=== PATIENT | male | born 1935 | race Caucasian/White ===

== ENCOUNTER 2017-03-20 17:16 | Inpatient (IN) | payer MEDICARE, OTHER ==
--- NOTE | ~2017-03-20 | DS ---
Discharge Summary [address] [address] NAME: ELIF ALMARAZ : 34 STATUS : DIS IN PAT#: [id number] AGE: 81 ADM/REG DATE : 03/20/17 MR#: [id number] REPORT SERV DATE: 03/24/17 DICTATED BY: THOMAS HERRING DATE: 03/23/17 REPORT STATUS : Draft TRANSCRIBED BY: MODL DATE: 03/23/17 ADMISSION DATE: 03/20/2017 DISCHARGE DATE: 03/23/2017 ADDENDUM: Discharge time greater than 30 minutes. DICTATED BY: Thomas Herring M.D. DD/JUNE Thomas Herring M.D. / [id number] CC: Lizandro Mullins M.D.
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
--- NOTE | ~2017-03-20 | DS ---
Discharge Summary [address] [place]. [address] NAME: ELIF ALMARAZ : 34 STATUS : DIS IN PAT#: [id number] AGE: 81 ADM/REG DATE : 03/20/17 MR#: [id number] REPORT SERV DATE: 03/24/17 DICTATED BY: THOMAS HERRING DATE: 03/23/17 REPORT STATUS : Draft TRANSCRIBED BY: MODL DATE: 03/23/17 ADMISSION DATE: 03/20/2017 DISCHARGE DATE: 03/23/2017 DISCHARGE DIAGNOSES: 1. Left pyelonephritis. 2. Left hydronephrosis. 3. Obstructing left renal stone, probably intermittent. 4. Bilateral renal stones and cysts. 5. Acute kidney injury, improving at discharge. 6. Benign prostatic hypertrophy with voiding dysfunction. 7. History of remote uric acid stones and stents. 8. Acute constipation associated with present illness. 9. Diverticulosis. 10.Hypertension. 11.B12 deficiency. 12.Multiple surgeries as described on admission history and physical examination. OPERATIONS AND PROCEDURES: Cystourethroscopy, left retrograde pyelogram, and left ureteral stent placement, Dr. Hutchins, 03/21/2017. PRESENT ILLNESS: This is an 81-year-old white male taken in transfer from [facility] Emergency Room with suspected pyelonephritis and acute kidney injury as outlined on admission history and physical examination dictated by the undersigned. ADDITIONAL HISTORY: Per history and physical examination. PHYSICAL EXAMINATION: Per admission history and physical examination. ADMISSION LABORATORY: Per admission history and physical examination. HOSPITAL COURSE: He was admitted to [address] [place] [address] with assessment: 1. Left pyelonephritis. 2. Left hydronephrosis. 3. Left renal stones and cysts. 4. Right renal cysts. 5. Acute kidney injury. 6. BPH with voiding dysfunction. 7. History of remote uric acid stones and stents. 8. Acute constipation. 9. Diverticulosis. 10.Hypertension. 11.B12 deficiency. 12.Surgeries as noted in history and physical examination. Discharge Summary [address] [place]. [address] NAME: ELIF ALMARAZ : 34 STATUS : DIS IN PAT#: [id number] AGE: 81 ADM/REG DATE : 03/20/17 MR#: [id number] REPORT SERV DATE: 03/24/17 DICTATED BY: THOMAS HERRING DATE: 03/23/17 REPORT STATUS : Draft TRANSCRIBED BY: JUNE DATE: 03/23/17 IV fluids and Rocephin were given at [facility]. Cultures were repeated here. He was started on Rocephin plus single-dose tobramycin. Crystalloid volume resuscitation was given. I spoke with Urology, Dr. Hutchins. On 03/21/2017, he was taken to the OR by Dr. Hutchins, where the above-mentioned procedure was performed. Significant findings included a trabeculated bladder, enlarged prostate, stone debris in the bladder, dilated left ureter and renal pelvis, and no purulent urine. He tolerated the procedure well. Postprocedure, his diet was advanced, which he tolerated well. Antimicrobials and IV hydration was continued. Cultures done here including blood x2 and urine x1 were no growth. With the above-mentioned therapy, his creatinine fell from 3.19 on admission to 2.42 at discharge, BUN 35 to 31. His white blood count was 9.9 here and 7.2 at discharge. A Fajardo catheter had been placed with difficulty per the patient and 's account when he was in the [facility] ER. With Fajardo discontinuation, he had some irritative voiding symptoms. These improved considerably with the use of flavoxate. On 03/23/2017, he was seen by his urologist, Dr. Sweeney. Dr. Sweeney suggested ureteroscopy stone ISWL on Thursday of this week. With his clinical improvement, it was felt he could be safely discharged home to have that procedure performed. DIET: He will continue his home diet. ACTIVITY: As tolerated. DISCHARGE MEDICATIONS: Pending followup on Thursday, he will continue the following medications, B12 at 1000 mcg IM every 28 days, B12 at 1000 mcg daily, Flomax 0.4 mg after supper, sodium bicarbonate 650 mg daily, Tylenol as needed for pain, Percocet 5/325 one to two every four hours as needed for pain not relieved by Tylenol, flavoxate 200 mg three times daily, Ceftin 500 mg twice daily for 10 days until followup noting he received 2 g of Rocephin daily here on 03/20/2017, 03/21/2017, and 03/22/2017 and prior to discharge, 03/23/2017. He plans to follow up with his primary care physician, Dr. Heck, in April or sooner if there are problems. DICTATED BY: Thomas Herring M.D. DD/JUNE Discharge Summary [address] [place] [address] NAME: ELIF ALMARAZ : 34 STATUS : DIS IN PAT#: [id number] AGE: 81 ADM/REG DATE : 03/20/17 MR#: [id number] REPORT SERV DATE: 03/24/17 DICTATED BY: THOMAS HERRING DATE: 03/23/17 REPORT STATUS : Draft TRANSCRIBED BY: JUNE DATE: 03/23/17 Thomas Herring M.D. / [id number] CC: Lizandro Mullins M.D. William Young Jr., M.D.
--- NOTE | ~2017-03-20 | OP ---
Record Of Operation [facility] [address] [place]. [address] NAME: ELIF BEACH : 34 STATUS : ADM IN [facility]#: [id number] AGE: 81 ADM/REG DATE : 03/20/17 MR#: [id number] REPORT SERV DATE: 03/21/17 DICTATED BY: TANNER HUTCHINS DATE: 03/21/17 REPORT STATUS : Draft TRANSCRIBED BY: MODL DATE: 03/21/17 DATE OF PROCEDURE: 03/21/2017 TITLE OF OPERATION: Cystourethroscopy, left retrograde pyelogram, and left ureteral stent placement. PREOPERATIVE DIAGNOSES: 1. Left renal stone. 2. Hydronephrosis. 3. Urinary tract infection. 4. Acute kidney injury. POSTOPERATIVE DIAGNOSES: 1. Left renal stone. 2. Hydronephrosis. 3. Urinary tract infection. 4. Acute kidney injury. INDICATIONS: Mr. Beach is an 81-year-old male, who is a patient of my partner, Dr. Sweeney. He has a history of renal stones and obstructive pyelonephritis. He presents today with left flank pain, fevers, and acute renal insufficiency. He is here for a stent placement. ANESTHESIA: General. COMPLICATIONS: None. IMPLANT: 6 x 26 left ureteral stent and 18-Malian coude catheter. SPECIMENS: None. NARRATIVE: The patient was brought to the operating room and identified by his wristband. General anesthesia was induced and Rocephin had already been given for preoperative antibiotics. He was placed in dorsal lithotomy position, and prepped and draped in sterile fashion. A 22-Malian cystoscope was placed into his urethra and into his bladder. The bladder was inspected. It was very trabeculated. The prostate was enlarged. There was some stone debris in his bladder. The left ureteral orifice was identified and cannulated with a Sensor wire. A 5-Malian open-ended catheter was placed over the wire into the distal ureter. Retrograde pyelogram was shot, which showed dilated left ureter and renal pelvis. A wire was placed up to the level of the renal pelvis. There was a filling defect consistent with a stone. A 6 x 26 ureteral stent was placed in standard fashion. The proximal coil was in the renal pelvis under fluoroscopic guidance. Distal coil was in the bladder under direct vision. Purulent urine was not drained from the kidney. The kidney efflux seemed fairly clear. The scope was removed. An 18-Malian coude catheter was placed. The balloon was inflated with 10 mL of sterile water. The patient was awoken from anesthesia and transferred to the recovery room in stable condition. I will have Dr. Sweeney see him if he is still here on Thursday to discuss treatment of this stone. Otherwise, we Record Of [address] [address] NAME: ELIF BEACH : 34 STATUS : ADM IN PAT#: [id number] AGE: 81 ADM/REG DATE : 03/20/17 MR#: [id number] REPORT SERV DATE: 03/21/17 DICTATED BY: TANNER HUTCHINS DATE: 03/21/17 REPORT STATUS : Draft TRANSCRIBED BY: JUNE DATE: 03/21/17 will have him follow up in clinic to arrange for stone management. His Fajardo catheter can be discharged tomorrow assuming that is okay with the hospitalist team and his creatinine is downtrending. AKI/JUNE Tanner Hutchins MD / [id number] CC: MD Brodie Osuna M.D.
[2017-03-20] MEDS ORDERED: CYANO1000T PO (18:36)
[2017-03-20] MEDS ORDERED: B121000P IM (18:36)
[2017-03-20] MEDS ORDERED: FLOMAX4 PO (18:37)
[2017-03-20] MEDS ORDERED: SODBICAR10 PO (18:38)
[2017-03-20] MEDS ORDERED: ACET500CAP PO (18:39)
[2017-03-21 02:15] LABS: ASCORBIC ACID (UR NOT ORDER) NEG (NEG); BILIRUBIN, URINE NEGATIVE (NEG); KETONE, URINE TRACE MG/DL (NEG); LEUKOCYTE ESTERASE(NOT OR SMALL (NEG); WBC (NOT ORDERED) (RFLEX) 5 (0-5)
[2017-03-21 04:33] LABS: BASOPHILS 0.3 %; BASOPHILS ABSOLUTE 0.03 10/3/uL (0.0-0.16); EOSINOPHILS 1.2 %; EOSINOPHILS ABSOLUTE 0.12 10/3/uL (0.0-0.53); HEMATOCRIT 37.7 % (40.0-51.0); HEMOGLOBIN 12.6 g/dL (13.6-17.8); IMMATURE GRANULOCYTES 0.2 %; IMMATURE GRANULOCYTES ABSOLUTE 0.02 10/3/uL (0.0-0.11); LYMPHOCYTES 19.9 %; LYMPHOCYTES ABSOLUTE 1.98 10/3/uL (0.67-4.30); MEAN CORPUS HGB CONC 33.4 g/dL (32.0-36.0); MEAN CORPUSCULAR HEMOGLOB 28.5 pg (26.0-34.0); MEAN CORPUSCULAR VOLUME 85.3 fL (80-100); MEAN PLATELET VOLUME 9.4 fL (9.2-13.0); MONOCYTES 11.5 %; MONOCYTES ABSOLUTE 1.14 10/3/uL (0.21-1.20); NEUTROPHILS 66.9 %; NEUTROPHILS ABSOLUTE 6.65 10/3/uL (2.02-8.40); PLATELET COUNT 222 10/3/uL (150-400); RBC DISTRIBUTION WIDTH 14.4 % (12.0-16.0); RED CELL COUNT 4.42 10/6/uL (4.7-6.1); WHITE BLOOD CELLS 9.9 10/3/uL (4.5-10.5)
[2017-03-21 04:36] LABS: MANUAL DIFF NO %
[2017-03-21 04:51] LABS: A/G RATIO 0.7 (0.7-1.9); ALBUMIN 2.5 G/DL (3.5-5.0); ALKALINE PHOSPHATASE 56 U/L (45-117); BUN (BLOOD UREA NITROGEN) 35 MG/DL (6-23); CALCIUM, SERUM 8.7 MG/DL (8.5-10.4); CHLORIDE, SERUM 111 MMOL/L (96-112); CO2 (CARBON DIOXIDE) 26 MMOL/L (24-34); CREATININE 3.19 MG/DL (0.70-1.30); GFR AFRICAN AMERICAN 20 ML/MIN (>=60); GFR NON AFRICAN AMERICAN 17 ML/MIN (>=60); GLOBULIN 3.6 G/DL (2.5-4.1); GLUCOSE, SERUM 92 MG/DL (60-99); POTASSIUM, SERUM 4.4 MMOL/L (3.5-5.3); SGOT(AST) 5 U/L (5-40); SGPT(ALT) 7 U/L (5-65); SODIUM, SERUM 141 MMOL/L (135-148); TOTAL BILIRUBIN 0.6 MG/DL (0-1.2); TOTAL PROTEIN 6.1 G/DL (6.0-8.5)
[2017-03-21 05:58] LABS: PROCALCITONIN 0.19 ng/mL (<0.5)
[2017-03-22 07:05] LABS: BUN (BLOOD UREA NITROGEN) 33 MG/DL (6-23); CHLORIDE, SERUM 113 MMOL/L (96-112); CO2 (CARBON DIOXIDE) 23 MMOL/L (24-34); CREATININE 2.73 MG/DL (0.70-1.30); GFR AFRICAN AMERICAN 24 ML/MIN (>=60); GFR NON AFRICAN AMERICAN 21 ML/MIN (>=60); GLUCOSE, SERUM 120 MG/DL (60-99); POTASSIUM, SERUM 4.5 MMOL/L (3.5-5.3); SODIUM, SERUM 143 MMOL/L (135-148)
[2017-03-22 07:09] LABS: HEMOGLOBIN 11.4 g/dL (13.6-17.8); MEAN CORPUS HGB CONC 32.6 g/dL (32.0-36.0); MEAN PLATELET VOLUME 9.5 fL (9.2-13.0); PLATELET COUNT 217 10/3/uL (150-400); RBC DISTRIBUTION WIDTH 14.6 % (12.0-16.0); RED CELL COUNT 4.07 10/6/uL (4.7-6.1)
[2017-03-22 07:10] LABS: MANUAL DIFF YES %
[2017-03-22 07:34] LABS: BAND NEUTROPHILS 1 %; EOSINOPHILS 2 %; EOSINOPHILS ABSOLUTE (CALC) 0.14 10/3/uL (0.0-0.53); LYMPHOCYTES 26 %; LYMPHOCYTES ABSOLUTE (CALC) 1.82 10/3/uL (0.67-4.30); MONOCYTES 4 %; MONOCYTES ABSOLUTE (CALC) 0.28 10/3/uL (0.21-1.20); NEUTROPHILS ABSOLUTE (CALC) 4.76 10/3/uL (2.02-8.40); PLATELET ESTIMATE ADQ (ADEQUATE); SEGMENTED NEUTROPHIL (0) 67 %; TOTAL NUCLEATED CELLS 100
[2017-03-22 07:35] LABS: RBC MORPHOLOGY NORM (NORMAL)
[2017-03-23 05:39] LABS: BASOPHILS 0.3 %; BASOPHILS ABSOLUTE 0.02 10/3/uL (0.0-0.16); EOSINOPHILS 2.6 %; EOSINOPHILS ABSOLUTE 0.19 10/3/uL (0.0-0.53); HEMOGLOBIN 12.4 g/dL (13.6-17.8); IMMATURE GRANULOCYTES 0.3 %; IMMATURE GRANULOCYTES ABSOLUTE 0.02 10/3/uL (0.0-0.11); LYMPHOCYTES ABSOLUTE 1.88 10/3/uL (0.67-4.30); MEAN CORPUS HGB CONC 32.1 g/dL (32.0-36.0); MEAN CORPUSCULAR HEMOGLOB 27.9 pg (26.0-34.0); MEAN CORPUSCULAR VOLUME 86.7 fL (80-100); MEAN PLATELET VOLUME 9.5 fL (9.2-13.0); MONOCYTES 11.2 %; MONOCYTES ABSOLUTE 0.81 10/3/uL (0.21-1.20); NEUTROPHILS 59.6 %; NEUTROPHILS ABSOLUTE 4.31 10/3/uL (2.02-8.40); PLATELET COUNT 266 10/3/uL (150-400); RBC DISTRIBUTION WIDTH 14.2 % (12.0-16.0); RED CELL COUNT 4.45 10/6/uL (4.7-6.1); WHITE BLOOD CELLS 7.2 10/3/uL (4.5-10.5)
[2017-03-23 05:40] LABS: HEMATOCRIT 38.6 % (40.0-51.0); MANUAL DIFF NO %
[2017-03-23 05:51] LABS: BUN (BLOOD UREA NITROGEN) 31 MG/DL (6-23); CHLORIDE, SERUM 113 MMOL/L (96-112); CO2 (CARBON DIOXIDE) 24 MMOL/L (24-34); CREATININE 2.42 MG/DL (0.70-1.30); GFR AFRICAN AMERICAN 28 ML/MIN (>=60); GFR NON AFRICAN AMERICAN 24 ML/MIN (>=60); GLUCOSE, SERUM 102 MG/DL (60-99); POTASSIUM, SERUM 4.1 MMOL/L (3.5-5.3); SODIUM, SERUM 141 MMOL/L (135-148)
[2017-03-23 05:53] LABS: CALCIUM, SERUM 9.2 MG/DL (8.5-10.4)
[2017-03-23] MEDS ORDERED: PCET PO (15:28)
[2017-03-23] MEDS ORDERED: FLAVOXATE100 MG PO (15:29)
[2017-03-23] MEDS ORDERED: CEFT5 PO (15:30)
[2017-04-06] MEDS ORDERED: UROCIT-K 15 PO (16:20)
== END 2017-03-23 16:28 | disposition home or self-care (01) | DRG 683 ==
LOC: 6NO 17:16
PROVIDERS: Internal Medicine; Urology
PROC: BT1F1ZZ Fluoroscopy of Left Kidney, Ureter and Bladder using Low Osmolar Contrast (ICD-10-PCS; 2017-03-21)
PROC: 0T778DZ Dilation of Left Ureter with Intraluminal Device, Via Natural or Artificial Opening Endoscopic (ICD-10-PCS; principal; 2017-03-21 12:45)
DX: N17.9 Acute kidney failure, unspecified (principal); N11.1 Chronic obstructive pyelonephritis; J84.10 Pulmonary fibrosis, unspecified; M06.9 Rheumatoid arthritis, unspecified; N28.1 Cyst of kidney, acquired; E53.8 Deficiency of other specified B group vitamins; K59.00 Constipation, unspecified; N32.89 Other specified disorders of bladder; N18.9 Chronic kidney disease, unspecified; N40.1 Benign prostatic hyperplasia with lower urinary tract symptoms; F17.220 Nicotine dependence, chewing tobacco, uncomplicated; K57.90 Diverticulosis of intestine, part unspecified, without perforation or abscess without bleeding; Z87.442 Personal history of urinary calculi; Z85.828 Personal history of other malignant neoplasm of skin; Z90.49 Acquired absence of other specified parts of digestive tract; Z91.041 Radiographic dye allergy status; Z83.3 Family history of diabetes mellitus
CPT/HCPCS: 71010; 74420; 80048; 80053; 81001; 83735; 84145; 85025; 87040; 87086; 93005; A9270-GY; C1758; C2617; J2405; J3010; J3260; Q9967

== ENCOUNTER 2017-03-27 07:09 | Day surgery (SDC) | payer MEDICARE, OTHER ==
--- NOTE | ~2017-03-27 | OP ---
Record Of Operation [facility] [address] [place]. [address] NAME: ELIF BEACH : 33 STATUS : [facility]#: [id number] AGE: 81 ADM/REG DATE : 03/27/17 MR#: [id number] REPORT SERV DATE: 03/27/17 DICTATED BY: SOLOMON SWEENEY JR. DATE: 03/27/17 REPORT STATUS : Draft TRANSCRIBED BY: MODL DATE: 03/27/17 DATE OF PROCEDURE: 03/27/2017 SURGEON: Solomon Sweeney M.D. PREOPERATIVE DIAGNOSIS: Multiple left renal stones with a history of pyonephrosis and sepsis of urinary origin. POSTOPERATIVE DIAGNOSIS: Multiple left renal stones with a history of pyonephrosis and sepsis of urinary origin. PROCEDURE PERFORMED: Cystoscopy, removal of left double-J stent, left ureteroscopy with laser ablation of multiple left renal stones, and replacement of 6 x 26 cm double-J stent. COMPLICATIONS: None. CONSULTATIONS: None. ANESTHESIA: General with an endotracheal tube. ESTIMATED BLOOD LOSS: None. SPECIMENS: None. INDICATION: Mr. Beach is an 81-year-old gentleman, who was recently admitted to the hospital for sepsis of urinary origin. A double-J stent was placed and he was treated appropriately for his infection. He comes back today for removal of those renal stones. PROCEDURE IN DETAIL: After the patient was identified and proper informed consent was obtained, he was taken to the operating room. General anesthesia was performed without complication using an endotracheal tube. He was then prepped and draped in normal sterile fashion in the lithotomy position. Cystoscopic examination was then performed revealing a normal penile and bulbous urethra. The prostatic urethra showed some trilobar hypertrophy, but otherwise negative. The bladder was examined and found to be normal. The stent was identified and removed using a grasping forceps and retrograde pyelogram was performed. He did have somewhat of a narrowing at the distal ureter, but a very dilated tortuous course to his ureteral length with dilated renal pelvis and calyces. The stones were not visible on fluoroscopic imaging. Short rigid ureteroscope was then inserted per the urethra alongside the guidewire that was already placed within the ureter and collecting system. The rigid ureteroscope was then advanced up the ureter all the way to the renal pelvis. I did not note any stones within the ureter. I then placed a 12 x 14 [place] ureteral access sheath without difficulties all the way into the renal pelvis. The renal pelvis and calyces were examined. He had multiple old clots within the renal pelvis that made it somewhat difficult to inspect the entire kidney. I was able to identify multiple stones in the lower pole calyces. These were moved into a mid pole calyx using a NGage basket. Once I had the stones in a more accessible location, I then advanced a 200 micron Holmium laser fiber into Record Of Operation [address] [address] NAME: ELIF BEACH : 33 STATUS : [facility] PAT#: [id number] AGE: 81 ADM/REG DATE : 03/27/17 MR#: [id number] REPORT SERV DATE: 03/27/17 DICTATED BY: SOLOMON SWEENEY JR. DATE: 03/27/17 REPORT STATUS : Draft TRANSCRIBED BY: MODL DATE: 03/27/17 the renal pelvis and fragmented the visible stones into very small pieces. The stones were quite soft and generated a lot of debris. I attempted to irrigate this debris out through the ureteroscope, but with the old clots and debris in place, it made it somewhat difficult to continue. I did my best to inspect each of the calyces once again to make sure there were no large stone fragments remaining. I was satisfied that this was the case. I then removed the ureteroscope and the ureteral access sheath deploying a 6 x 26 cm double-J stent. I did not leave a string in place and we will plan a second-look ureteroscopy in about two weeks. I will start him on Urocit-K to help dissolve any of these uric acid stones that are still present and hopefully be able to remove his stent at the time of his next procedure. FLAVIA/JUNE Solomon Sweeney Jr., M.D. / [id number] CC: Lizandro Rudolph Jr., M.D.
[~2017-03-27 07:09] MED LIST: ACET500CAP PO; B121000P IM; CEFT5 PO; CYANO1000T PO; FLAVOXATE100 MG PO; FLOMAX4 PO; PCET PO; SODBICAR10 PO
[2017-04-06] MEDS ORDERED: UROCIT-K 15 PO (16:20)
== END 2017-03-27 15:50 | disposition home or self-care (01) ==
LOC: SDC 07:09
PROVIDERS: Urology
PROC: 0T778DZ Dilation of Left Ureter with Intraluminal Device, Via Natural or Artificial Opening Endoscopic (ICD-10-PCS; 2017-03-27)
PROC: 0TC78ZZ Extirpation of Matter from Left Ureter, Via Natural or Artificial Opening Endoscopic (ICD-10-PCS; 2017-03-27)
PROC: 0T778DZ Dilation of Left Ureter with Intraluminal Device, Via Natural or Artificial Opening Endoscopic (ICD-10-PCS; 2017-03-27)
PROC: 0TF48ZZ Fragmentation in Left Kidney Pelvis, Via Natural or Artificial Opening Endoscopic (ICD-10-PCS; 2017-03-27)
PROC: 0T778DZ Dilation of Left Ureter with Intraluminal Device, Via Natural or Artificial Opening Endoscopic (ICD-10-PCS; 2017-03-27)
PROC: 0TC78ZZ Extirpation of Matter from Left Ureter, Via Natural or Artificial Opening Endoscopic (ICD-10-PCS; principal; 2017-03-27 10:00)
DX: N20.0 Calculus of kidney (principal)
CPT/HCPCS: 74420; A9270-GY; C1758; C1769; C1894; C2617; J2405; J2710; J3010; Q9967

== ENCOUNTER 2017-04-10 08:38 | Day surgery (SDC) | payer MEDICARE, OTHER ==
[2017-04-09 10:17] LABS: HEMOGLOBIN 13.8 g/dL (13.6-17.8)
[2017-04-09 10:20] LABS: HEMATOCRIT 43.1 % (40.0-51.0)
[2017-04-09 10:26] LABS: ASCORBIC ACID (UR NOT ORDER) NEG (NEG); BILIRUBIN, URINE NEGATIVE (NEG); KETONE, URINE NEGATIVE (NEG); LEUKOCYTE ESTERASE(NOT OR TRACE (NEG); WBC (NOT ORDERED) (RFLEX) 4 (0-5)
[2017-04-09 10:29] LABS: BUN (BLOOD UREA NITROGEN) 32 MG/DL (6-23); CALCIUM, SERUM 9.1 MG/DL (8.5-10.4); CHLORIDE, SERUM 109 MMOL/L (96-112); CO2 (CARBON DIOXIDE) 26 MMOL/L (24-34); CREATININE 2.52 MG/DL (0.70-1.30); GFR AFRICAN AMERICAN 26 ML/MIN (>=60); GFR NON AFRICAN AMERICAN 23 ML/MIN (>=60); SODIUM, SERUM 141 MMOL/L (135-148)
[2017-04-09 10:33] LABS: GLUCOSE, SERUM 59 MG/DL (60-99)
--- NOTE | ~2017-04-10 | OP ---
Record Of Operation [facility] [address] [place]. [address] NAME: ELIF BEACH : 33 STATUS : [facility] PAT#: [id number] AGE: 81 ADM/REG DATE : 04/10/17 MR#: [id number] REPORT SERV DATE: 04/10/17 DICTATED BY: SOLOMON SWEENEY JR. DATE: 04/10/17 REPORT STATUS : Draft TRANSCRIBED BY: MODL DATE: 04/10/17 DATE OF PROCEDURE: 04/10/2017 SURGEON: Solomon Sweeney M.D. PREOPERATIVE DIAGNOSIS: Left renal stones. POSTOPERATIVE DIAGNOSIS: Left renal stones. PROCEDURE PERFORMED: Cystoscopy, left retrograde pyelogram, removal of left double-J stent, left ureteroscopy with laser ablation of a few residual renal stones, and replacement of double-J stent. COMPLICATIONS: None. CONSULTATIONS: None. ANESTHESIA: General with an endotracheal tube. SPECIMENS: Left renal stone fragments. DRAINS: 6 x 26 cm double-J stent. ESTIMATED BLOOD LOSS: None. INDICATION: Mr. Beach is an 81-year-old gentleman, who originally had a stent placed for obstructing stone with urosepsis. He was treated for that sepsis and then following that, had a ureteroscopy with stone ablation of multiple renal stones. 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 PROCEDURE IN DETAIL: After the patient was identified and proper informed consent was obtained, he was taken to the operating room. General anesthesia was performed without complication using an endotracheal tube. He was then prepped and draped in the normal sterile fashion in the lithotomy position. Cystoscopic examination of the urethra and bladder were performed. The stent was identified and removed using a grasping forceps. The retrograde pyelogram was performed to outline the renal pelvis and calices. There were no filling defects in the ureter. Flexible ureteroscopy was performed alongside the guidewire and the ureter was clear of any stone debris. Within the kidney, there were several stones noted but these were all very small less than 1 to 2 mm in size. There were 2 stones noted there were approximately 4 to 5 mm, these were fragmented using a 200 micron Holmium laser fiber. The rest of the kidney was then inspected using a 10 mL syringe to irrigate the calices to make sure there were no superior stones lying behind the smaller stone. I was rather satisfied that all the stones have been fragmented. I removed several of the pieces for diagnostic purposes and then placed a double-J stent 6 x 26 cm in size with a string left in place. The bladder was drained. The patient was awakened in the operating room and Record Of Operation [address] [place]. [address] NAME: ELIF BEACH : 33 STATUS : [facility] PAT#: [id number] AGE: 81 ADM/REG DATE : 04/10/17 MR#: [id number] REPORT SERV DATE: 04/10/17 DICTATED BY: SOLOMON SWEENEY JR. DATE: 04/10/17 REPORT STATUS : Draft TRANSCRIBED BY: JUNE DATE: 04/10/17 transferred to the postoperative care unit in stable condition. I will see him on Thursday for double-J stent removal. The string was left in place, and I will see him in six weeks for further workup. He has had an elevated potassium due to presumed Urocit-K. I will stop the Urocit-K over the weekend and recheck his potassium on Thursday. FLAVIA/JUNE Solomon Sweeney Jr., M.D. / [id number] CC: Lizandro Rudolph Jr., M.D.
[~2017-04-10 08:38] MED LIST changes: +UROCIT-K 15 PO
[2017-04-10 09:14] LABS: BUN (BLOOD UREA NITROGEN) 35 MG/DL (6-23); CHLORIDE, SERUM 112 MMOL/L (96-112); CO2 (CARBON DIOXIDE) 25 MMOL/L (24-34); CREATININE 2.69 MG/DL (0.70-1.30); GFR AFRICAN AMERICAN 24 ML/MIN (>=60); GFR NON AFRICAN AMERICAN 21 ML/MIN (>=60); SODIUM, SERUM 142 MMOL/L (135-148)
[2017-04-10 09:18] LABS: GLUCOSE, SERUM 91 MG/DL (60-99); POTASSIUM, SERUM 6.3 MMOL/L (3.5-5.3)
[2017-04-16 18:40] LABS: STONE COMPOSITION TWO DNR (())
== END 2017-04-10 17:19 | disposition home or self-care (01) ==
LOC: SDC 08:38
PROVIDERS: Urology
PROC: 0T778DZ Dilation of Left Ureter with Intraluminal Device, Via Natural or Artificial Opening Endoscopic (ICD-10-PCS; 2017-04-10)
PROC: 0TC18ZZ Extirpation of Matter from Left Kidney, Via Natural or Artificial Opening Endoscopic (ICD-10-PCS; 2017-04-10)
PROC: 0TF38ZZ Fragmentation in Right Kidney Pelvis, Via Natural or Artificial Opening Endoscopic (ICD-10-PCS; principal; 2017-04-10 11:00)
DX: N20.0 Calculus of kidney (principal); N28.9 Disorder of kidney and ureter, unspecified; I10 Essential (primary) hypertension; E53.8 Deficiency of other specified B group vitamins; K29.70 Gastritis, unspecified, without bleeding; K20.9 Esophagitis, unspecified; F17.290 Nicotine dependence, other tobacco product, uncomplicated; H91.90 Unspecified hearing loss, unspecified ear; Z91.041 Radiographic dye allergy status; Z85.828 Personal history of other malignant neoplasm of skin; Z90.49 Acquired absence of other specified parts of digestive tract; Z79.899 Other long term (current) drug therapy; Z98.890 Other specified postprocedural states
CPT/HCPCS: 74420; 80048; 81001; 82365; 82962; 84132; 85014; 85018; C1758; C1769; C2617; J2250; J2405; J2710; J3010; Q9967